=== PATIENT | male | born 1985 | race African-American/Black ===

== ENCOUNTER → 2016-07-10 | Outpatient (CLI) | payer OTHER ==
[~2016-07-10] MED LIST: LORTAB 5/500 501 TAB PO; MECLIZINE25 MG PO; MOTRIN 800800 MG/TAB PO; NAPROXEN EC500 MG PO; NO HOME MEDICATIONS; NORCO 325 MG-51 TAB PO; ULTRAM 50MG TAB50 MG PO
== END ==
LOC: COL.PUL 07-06 09:00
DX: R06.02 Shortness of breath (principal)

== ENCOUNTER 2016-07-25 14:11 | Outpatient (RCR) | payer OTHER ==
[~2016-07-25 14:11] MED LIST changes: -ULTRAM 50MG TAB50 MG PO
== END 2016-09-25 13:35 ==
LOC: WSOH 14:11
DX: M54.5 Low back pain (principal); X50.3XXA Overexertion from repetitive movements, initial encounter; Y99.0 Civilian activity done for income or pay

== ENCOUNTER → 2016-10-16 | Outpatient (REF) ==
[~2016-10-16] MED LIST changes: +ULTRAM 50MG TAB50 MG PO
== END ==
LOC: WSOH 10:52
DX: Z02.4 Encounter for examination for driving license (principal)

== ENCOUNTER 2017-01-11 18:53 | Emergency (ER) | payer OTHER ==
[~2017-01-11] VITALS: Ht 188 cm; Wt 95.5 kg
[~2017-01-11 18:53] MED LIST changes: -ULTRAM 50MG TAB50 MG PO
[2017-01-11 19:01] VITALS: BP 134/81; TEMP 96.4
[2017-01-11] MEDS ORDERED: ULTRAM 50MG TAB50 MG PO (19:25)
[2017-01-11 19:54] VITALS: PULSE 58
== END 2017-01-11 19:54 | disposition home or self-care (01) ==
LOC: COL.ER 18:53
DX: M54.9 Dorsalgia, unspecified (principal)

== ENCOUNTER 2018-03-21 22:52 | Emergency (ER) | payer BC ==
[~2018-03-21] VITALS: Ht 188 cm; Wt 95.5 kg
[~2018-03-21 22:52] MED LIST changes: +ULTRAM 50MG TAB50 MG PO
[2018-03-21] MEDS ORDERED: ADVIL200 MG PO (23:03)
[2018-03-21 23:27] LABS: BASO % 0.5 % (0.0-2.0); EOS # 0.2 (0.0-0.7); EOS % 3.2 % (0-4.0); GRAN # 3.7 (1.4-6.5); GRAN % 64.9 % (42.2-75.2); LYMPH # 1.4 (1.2-3.4); MEAN CELL VOLUME 88 fl (80.0-100.0); MEAN CORPUSCULAR HEMOGLOBIN 29 pg (27.0-31.0); MEAN CORPUSCULAR HGB CONC 33 g/dl (33.0-37.0); MEAN PLATELET VOLUME 9.4 fl (7.4-10.4); MONO # 0.3 (0.1-0.6); PLATELET COUNT 269 K/mm3 (130-400); RED BLOOD COUNT 4.42 M/mm3 (4.20-5.60); REDCELL DISTRIBUTION WIDTH-CV 11.8 % (11.5-14.5)
[2018-03-21 23:31] LABS: ANION GAP 8 mmol/L (7-16); BLOOD UREA NITROGEN 14 mg/dL (9-20); CALCIUM 8.9 mg/dL (8.4-10.2); CARBON DIOXIDE 27 mmol/L (22-30); CHLORIDE 106 mmol/L (98-107); GLUCOSE 126 mg/dL (74-106); POTASSIUM 3.4 mmol/L (3.4-5.0); SODIUM 141 mmol/L (137-145)
[2018-03-21 23:55] LABS: TROPONIN-I < 0.012 ng/mL (0.000-0.034)
[2018-03-22 00:56] VITALS: BP 123/82; PULSE 61
== END 2018-03-22 01:00 | disposition home or self-care (01) ==
LOC: COL.ER 22:52
PROVIDERS: Emergency Medicine
DX: R07.89 Other chest pain (principal)
CPT/HCPCS: J1885

== ENCOUNTER 2021-08-08 18:24 | Emergency (ER) | payer SELFPAY ==
[~2021-08-08] VITALS: Ht 188 cm; Wt 95.5 kg
[~2021-08-08 18:24] MED LIST changes: +ADVIL200 MG PO
[2021-08-08 18:31] VITALS: TEMP 97.3
[2021-08-08 18:53] LABS: BASO % 0.7 % (0.0-2.0); EOS # 0.2 K/mm3 (0.0-0.7); EOS % 3.1 % (0.0-4.0); GRAN # 3.9 K/mm3 (1.4-6.5); GRAN % 63.7 % (42.2-75.2); HEMATOCRIT 37.7 % (42.0-52.0); HEMOGLOBIN 12.8 g/dl (13.5-18.0); LYMPH # 1.4 K/mm3 (1.2-3.4); LYMPH % 22.2 % (20.0-51.0); MEAN CELL VOLUME 86 fl (80.0-100.0); MEAN CORPUSCULAR HEMOGLOBIN 29 pg (27-31); MEAN CORPUSCULAR HGB CONC 34 g/dl (33.0-37.0); MEAN PLATELET VOLUME 9.5 fl (7.4-10.4); MONO # 0.6 K/mm3 (0.1-0.6); PLATELET COUNT 298 K/mm3 (130-400); REDCELL DISTRIBUTION WIDTH-CV 11.9 % (11.5-14.5)
[2021-08-08 19:11] LABS: ALANINE AMINOTRANSFERASE 12 U/L (0-55); ALBUMIN 4.2 gm/dL (3.5-5.0); ALKALINE PHOSPHATASE 67 U/L (40-150); ANION GAP 7 mmol/L (7-16); AST,SGOT 16 U/L (5-34); BILIRUBIN,TOTAL 0.3 mg/dL (0.2-1.2); BLOOD UREA NITROGEN 12 mg/dL (9-21); CALCIUM 9.1 mg/dL (8.4-10.2); CARBON DIOXIDE 25 mmol/L (22-29); CHLORIDE 108 mmol/L (98-107); CREATININE, serum 0.97 mg/dL (0.72-1.25); GLUCOSE 84 mg/dL (70-99); POTASSIUM 3.8 mmol/L (3.5-4.5); SODIUM 140 mmol/L (136-145); TOTAL PROTEIN 7.3 gm/dL (6.2-8.1)
[2021-08-08 19:18] LABS: TROPONIN-I < 0.010 ng/mL (0.00-0.033)
[2021-08-08] MEDS ORDERED: ZITHROMAX 250M250 MG PO (20:02)
[2021-08-08] MEDS ORDERED: PREDNISONE20 MG PO (20:02)
[2021-08-08 20:26] VITALS: BP 139/91; PULSE 58
== END 2021-08-08 20:26 | disposition home or self-care (01) ==
LOC: COL.ER 18:24
PROVIDERS: Emergency Medicine
DX: R07.89 Other chest pain (principal); Z20.822 Contact with and (suspected) exposure to COVID-19
CPT/HCPCS: J1885; J7512